=== PATIENT | female | born 1985 | race Caucasian/White ===

== ENCOUNTER 2023-01-08 08:34 | Emergency (ER) | payer BC ==
[2023-01-08] MEDS ORDERED: diphenhydrAMINE 50 MG/ML SDV IVPUSH ONE (09:36)
[2023-01-08] MEDS ORDERED: Sodium Chloride 0.9% 1,000 ML IV ONE (09:36)
[2023-01-08] MEDS ORDERED: Ketorolac 30 MG/ML SDV IVPUSH ONE (09:36)
[2023-01-08] MEDS ORDERED: Metoclopramide 10 MG/2 ML SDV IVPUSH ONE (09:36)
[2023-01-08] MEDS ORDERED: Sodium Chloride 0.9% 10 ML Syringe FLUSH PRN (09:49)
[2023-01-08] MEDS ORDERED: Sodium Chloride 0.9% 2.5 ML Syringe FLUSH PRN (09:49)
[2023-01-08] MEDS ORDERED: Ondansetron 4 MG/2 ML SDV IVPUSH ONE (10:03)
[2023-01-08 10:07] LABS: POTASSIUM,K 3.9 mmol/L (3.5-5.1)
[2023-01-08] MEDS ORDERED: Iopamidol 755 MG/ML 500 ML Multipack Bottle IVPUSH STA (11:14)
[2023-01-08 12:06] LABS: CORONAVIRUS COVID-19 NAA NEGATIVE (NEGATIVE); INFLUENZA A NAA NEGATIVE (NEGATIVE); INFLUENZA B NAA NEGATIVE (NEGATIVE)
== END 2023-01-08 12:18 | disposition home or self-care (01) ==
LOC: MW.ED 08:34
DX: G43.909 Migraine, unspecified, not intractable, without status migrainosus (principal); Z88.5 Allergy status to narcotic agent; Z20.822 Contact with and (suspected) exposure to COVID-19
CPT/HCPCS: 0240U; 36415; 70450; 70496; 70498; 80053; 84484; 85025; 93005; 96361; 96374; 96375; 99284; J1200; J1885; J2405; J2765; J3490; J7030; Q9967; 93010